=== PATIENT | male | born 1945 | race Caucasian/White ===

== ENCOUNTER → 2021-03-17 | Outpatient (CLI) | payer MEDICARE, OTHER ==
--- NOTE | 2021-03-17 08:50 | Diagnostic Imaging Report ---
PROCEDURE: CT head without contrast. TECHNIQUE: Multiple contiguous axial images were obtained through the brain without the use of intravenous contrast. Auto Exposure Controls were utilized during the CT exam to meet ALARA standards for radiation dose reduction. INDICATION: Worsening memory loss. No comparison. Findings: There is no intracranial hemorrhage, hydrocephalus, edema, mass or mass effect. There is no evidence for an elevation of the intracerebral pressures. There is intracranial atherosclerotic vascular calcifications chronic. No sulcal effacement. No evidence for edema and no findings of elevated pressures. No abnormal extra-axial fluid collection. No acute appearing pathology. IMPRESSION: Unremarkable cerebral cortical volume for age. No edema, hemorrhage or infarct or acute appearing abnormalities. Dictated by: Dictated on workstation # [id number]
== END ==
LOC: RAD FS 08:01
PROVIDERS: ATTEND Family Medicine
DX: R41.3 Other amnesia (principal)
CPT/HCPCS: 70450